=== PATIENT | female | born 1995 | race Caucasian/White ===

== ENCOUNTER 2018-12-19 11:03 | Emergency (ER) | payer SELFPAY ==
[~2018-12-19] VITALS: Ht 154.9 cm; Wt 66.7 kg
[2018-12-19 11:17] VITALS: BP 148/80
--- NOTE | 2018-12-19 11:27 | NUR ---
PT ABULATED TO ER BED 02
--- NOTE | 2018-12-19 11:39 | NUR ---
PATIENT PRESENTS TO ED WITH COMPLAINT OF DIFFUSE 7/10 ABDOMINAL PAIN X 1 MONTH. PT STATES THAT THE PAIN WORSENED 2 DAYS AGO. PT HAD 7 EPISODES OF LOOSE BLOODY STOOLS YDAY AND 4 EPISODES SINCE THIS MORNING. PT WAS DIAGNOSED WITH IBS IN [facility] 1 MONTH AGO AND WAS PRESCRIBED WITH METRONIDAZOLE X 7 DAYS. SYMPTOMS PERSISTED. -VOMITING, -FEVER, -CP, -URINARY SYMPTOMS. VSS; PATIENT POSITIONED FOR COMFORT; HOB ELEVATED; BEDRAILS UP X2; BED DOWN. ER MD MADE AWARE OF PT STATUS. MEDS: NORCO PRN NO ALLERGIES
[2018-12-19] MEDS ORDERED: KETOROLAC 60 MG/2 ML VIAL IM ONE (11:55)
[2018-12-19 12:29] VITALS: BP 148/80
--- NOTE | 2018-12-19 12:30 | NUR ---
Patient discharged with v/s stable. Written and verbal after care instructions given and explained. Patient alert, oriented and verbalized understanding of instructions. Ambulatory with steady gait. All questions addressed prior to discharge. ID band removed. Patient advised to follow up with PMD. Rx of PREDNISONE, PRILOSEC given. Patient educated on indication of medication including possible reaction and side effects. Opportunity to ask questions provided and answered.
== END 2018-12-19 12:30 | disposition home or self-care (01) ==
LOC: MED 11:03
DX: R10.9 Unspecified abdominal pain (principal); Z90.49 Acquired absence of other specified parts of digestive tract
CPT/HCPCS: 81002; 81025; 96372; 99283; J1885